=== PATIENT | male | born 1990 | race Caucasian/White ===

== ENCOUNTER 2024-09-30 08:10 | Emergency (ER) | payer SELFPAY ==
[~2024-09-30] VITALS: Ht 167.6 cm; Wt 73.0 kg
[2024-09-30 08:15] VITALS: BP 145/103; PULSE 110; RESP 18; TEMP 37.2; O2SAT 99
[2024-09-30] MEDS: LIDOCAINE HCL/EPINEPHRINE 1%-EPI 1:100,000 10ML VIAL INFIL ONE (09:12)
[2024-09-30] MEDS: SODIUM CHLORIDE 0.9% IRRIG SOLUTION 1000ML IR NR (09:12)
[2024-09-30] MEDS: TETANUS, DIPHTHERIA, PERTUSSIS VAC/PF 0.5ML (>10YR OLD) IM ONE (09:22)
== END 2024-09-30 10:44 | disposition home or self-care (01) ==
LOC: ER 08:10
DX: S01.511A Laceration without foreign body of lip, initial encounter (principal); Z90.49 Acquired absence of other specified parts of digestive tract; Y08.89XA Assault by other specified means, initial encounter; Y93.89 Activity, other specified; Y92.89 Other specified places as the place of occurrence of the external cause; Y99.8 Other external cause status
CPT/HCPCS: 90715; 12011; 90471; 99283; Z7610 ×4